=== PATIENT | male | born 1940 | race Native Hawaiian/Other Pacific Islander ===

== ENCOUNTER 2017-06-18 11:48 | Emergency (ER) | payer MEDICARE ==
[2017-06-18 11:49] VITALS: BMI 30.1
[2017-06-18 12:24] VITALS: RESP 18; O2SAT 95
--- NOTE | 2017-06-18 13:58 | C.PDOC ---
History Of Present Illness 77 y/o male, with history of dental issue,bridges, and dental prosthetics, presents to the ER complaining of pain in the right lower molar. Patient states that he has been having this pain but the pain became worse this morning. He states that he felt chest discomfort ( due to dental problem) which has resolved now. Time Seen by Provider: 06/18/17 13:45 Chief Complaint (Nursing): Dental Pain History Per: Patient History/Exam Limitations: no limitations Onset/Duration Of Symptoms: Hrs Current Symptoms Are (Timing): Still Present Severity: Moderate Past Medical History Reviewed: Historical Data, Nursing Documentation, Vital Signs Vital Signs: Last Vital Signs Temp 97.8 F 06/18/17 13:19 Pulse 84 06/18/17 13:19 Resp 18 06/18/17 13:19 BP 195/98 H 06/18/17 13:19 Pulse Ox 95 06/18/17 15:01 - Medical History PMH: COPD, HTN, Hypercholesterolemia Denies: Chronic Kidney Disease Surgical History: CABG (quadruple), Cholecystectomy Denies: Pacemaker Family History: States: No Known Family Hx - Social History Hx Tobacco Use: Yes Hx Alcohol Use: No Hx Substance Use: No - Immunization History Hx Tetanus Toxoid Vaccination: No Hx Influenza Vaccination: Yes Hx Pneumococcal Vaccination: No Review Of Systems Except As Marked, All Systems Reviewed And Found Negative. Constitutional: Negative for: Fever, Chills ENT: Positive for: Mouth Pain (right lower molar pain) Respiratory: Negative for: Cough, Shortness of Breath Physical Exam - Physical Exam Appears: Non-toxic, Other (obese, no apparent distress) Skin: Normal Color, Warm Head: Atraumatic, Normacephalic Eye(s): bilateral: Normal Inspection, PERRL Nose: Normal Oral Mucosa: Moist Teeth: Other (dental implant in place, no acute pain) Throat: Normal, No Erythema, No Exudate Neck: Supple Chest: Symmetrical Cardiovascular: Rhythm Regular Respiratory: Normal Breath Sounds, No Accessory Muscle Use, No Rales, No Rhonchi , No Wheezing Extremity: Normal ROM Neurological/Psych: Oriented x3, Normal Speech, Normal Cognition, Normal Motor, Normal Sensation ED Course And Treatment ECG: Interpreted By Me ECG Rhythm: Sinus Rhythm, R BBB ECG Interpretation: Normal Rate From EC O2 Sat by Pulse Oximetry: 95 (RA) Pulse Ox Interpretation: Normal Medical Decision Making Medical Decision Making: though pt initially claimed to have mild chest discomfort when dental pain was at its worst, pt denies cp since arriving @ ED and declines (w informed consent ) to have cardiac w/u peformed today. Asks only for abx and pain meds and will coordinte with his Cardio and Dentist to suspend ASA/plavix prior to dental procedure for R lower molar extraction. Disposition Doctor Will See Patient In The: Office Counseled Patient/Family Regarding: Studies Performed, Diagnosis - Disposition Referrals: Dileep Troy DO [[facility]] - Disposition: HOME/ ROUTINE Disposition Time: 13:58 Condition: GOOD Additional Instructions: motrin 400-600 mg every 6 hours as needed for dental pain Tramadol 50 mg (narcotic) 1 tab every 6 hours as needed for more severe dental pain [place] VK 250 mg 4x/day for proposed dental infection. Follow-up with your dentist for definitive dental repair and coordinate with your Brush Polisher to suspend the Plavix and ASA around your dental procedure. Prescriptions: Penicillin VK [Penicillin VK Tab] 250 mg PO Q6H 7 Days #28 tab traMADol [Ultram] 50 mg PO Q6H PRN #20 tab PRN Reason: pain Instructions: Dental Caries (ED) Forms: [facility] (Lebanese) - Clinical Impression Clinical Impression: Dentalgia - Scribe Statement The provider has reviewed the documentation as recorded by the Bethany Brown Provider Attestation: All medical record entries made by the Dougiblucia were at my direction and personally dictated by me. I have reviewed the chart and agree that the record accurately reflects my personal performance of the history, physical exam, medical decision making, and the department course for this patient. I have also personally directed, reviewed, and agree with the discharge instructions and disposition.
[2017-06-18 13:59] VITALS: BP 195/98; PULSE 86; TEMP 97.8
--- NOTE | 2017-06-19 23:09 | CARD ---
APPROVED REPORT EKG Measurement Heart [id number] <Conclusion> Sinus rhythm with occasional premature ventricular complexes and premature atrial complexes Possible Left atrial enlargement Right bundle branch block Left anterior fascicular block Bifascicular block Inferior infarct, age undetermined Abnormal ECG
== END 2017-06-18 14:20 | disposition home or self-care (01) ==
LOC: C.ER 11:48
DX: K08.89 Other specified disorders of teeth and supporting structures (principal); I10 Essential (primary) hypertension; F17.210 Nicotine dependence, cigarettes, uncomplicated

== ENCOUNTER 2017-11-29 12:41 | Emergency (ER) | payer MEDICARE ==
[2017-11-29 12:41] VITALS: BMI 30.1
[2017-11-29 13:03] VITALS: O2SAT 97
[2017-11-29] MEDS ORDERED: Sodium Chloride 0.9% 500 ML IV ONE (13:15)
[2017-11-29] MEDS ORDERED: Sodium Chloride 0.9% 1,000 ML ONE (13:23)
--- NOTE | 2017-11-29 13:49 | RAD ---
PROCEDURE: CHEST RADIOGRAPH, 1 VIEW HISTORY: SOB COMPARISON: Chest radiograph dated 02/04/2016. FINDINGS: LUNGS: Clear. PLEURA: No pneumothorax or pleural fluid seen. CARDIOVASCULAR: Prior sternotomy with sternal wires and surgical clips redemonstrated. Interval fracture of the sternal wires. Atherosclerotic aortic calcifications. Cardiomediastinal silhouette stably enlarged OSSEOUS STRUCTURES: Unchanged. VISUALIZED UPPER ABDOMEN: Normal. OTHER FINDINGS: None. IMPRESSION: Interval fracture of sternotomy wires. No focal consolidation or pleural effusion.
[2017-11-29 14:46] LABS: BASO # 0.1 K/uL (0.0-0.2); BASO % 0.5 % (0.0-2.0); EOS # 1.5 K/uL (0.0-0.7); EOS % 11.8 % (0.0-4.0); HEMOGLOBIN 16.8 g/dL (12.0-18.0); LYMPH # 1.6 K/uL (1.0-4.3); LYMPH % 12.9 % (20.0-40.0); MEAN CELL VOLUME 94.1 fL (80.0-94.0); MEAN CORPUSCULAR HEMOGLOBIN 32.2 pg (27.0-31.0); MEAN CORPUSCULAR HGB CONC 34.2 g/dL (33.0-37.0); MEAN PLATELET VOLUME 8.1 fL (7.2-11.7); MONO # 0.9 K/uL (0.0-0.8); MONO % 7.3 % (0.0-10.0); NEUT # 8.3 K/uL (1.8-7.0); NEUT % 67.5 % (50.0-75.0); NRBC % 0.1 % (0.0-2.0); RBC 5.22 Mil/uL (4.40-5.90); RED CELL DISTRIBUTION WIDTH 13.3 % (11.5-14.5); WHITE BLOOD COUNT 12.3 K/uL (4.8-10.8)
[2017-11-29 15:04] LABS: ALB/GLOB RATIO 1.3 (1.0-2.1); CALCIUM 8.9 mg/dl (8.6-10.4)
[2017-11-29 15:15] LABS: TROPONIN I 0.017 ng/mL (0.00-0.120)
[2017-11-29 16:07] VITALS: BP 160/67; PULSE 89; RESP 18; TEMP 97.6
--- NOTE | 2017-11-29 16:07 | C.PDOC ---
History Of Present Illness 77 y/o male presents to the ER complaining of a a generalized rash which has been present since he woke up in the morning today. Patient states he is very pruritic. Patient reports that he took 1 Benadryl tablet at 7 am. He states that he ate fish and tomatoe last night. Denies using new food and new clothing. Time Seen by Provider: 11/29/17 13:11 Chief Complaint (Nursing): Allergic Reaction History Per: Patient History/Exam Limitations: no limitations Onset/Duration Of Symptoms: Hrs Current Symptoms Are (Timing): Still Present Severity: Moderate Past Medical History Reviewed: Historical Data, Nursing Documentation, Vital Signs Vital Signs: Last Vital Signs Temp 97.6 F 11/29/17 16:07 Pulse 89 11/29/17 16:07 Resp 18 11/29/17 16:07 BP 160/67 H 11/29/17 16:07 Pulse Ox 97 11/29/17 16:42 - Medical History PMH: COPD, HTN, Hypercholesterolemia Denies: Chronic Kidney Disease Surgical History: CABG (quadruple), Cholecystectomy Denies: Pacemaker Family History: States: No Known Family Hx - Social History Hx Tobacco Use: Yes Hx Alcohol Use: No Hx Substance Use: No - Immunization History Hx Tetanus Toxoid Vaccination: No Hx Influenza Vaccination: Yes Hx Pneumococcal Vaccination: No Review Of Systems Except As Marked, All Systems Reviewed And Found Negative. Constitutional: Negative for: Fever, Chills Skin: Positive for: Rash Physical Exam - Physical Exam Appears: Non-toxic, No Acute Distress Skin: Normal Color, Warm, Rash (urticaria to face, chest, back, arms, legs) Head: Atraumatic, Normacephalic Eye(s): bilateral: Normal Inspection Nose: Normal Oral Mucosa: Moist Neck: Supple Chest: Symmetrical Cardiovascular: Rhythm Regular Respiratory: Normal Breath Sounds, No Rales, No Rhonchi, No Wheezing, Other ( normal voice) Gastrointestinal/Abdominal: Normal Exam, Soft, No Tenderness, No Guarding, No Rebound Extremity: Normal ROM Neurological/Psych: Oriented x3, Normal Speech ED Course And Treatment - Laboratory Results Result Diagrams: 11/29/17 13:14 11/29/17 13:14 Lab Interpretation: Abnormal (+ predominantly lymphocytic c/w allergic rxn) ECG: Interpreted By Me ECG Rhythm: Sinus Rhythm ECG Interpretation: Normal Interpretation Of ECG: NSR with RBBB Rate From EC O2 Sat by Pulse Oximetry: 97 (RA) Pulse Ox Interpretation: Normal - Radiology CXR: Interpreted by Me CXR Interpretation: Yes: No Acute Disease Progress Note: Labs, UA, EKG, and CXR ordered and reviewed. Of note, arterial blood was used. Patient treated with Pepcid PO, Prednisone PO, Benadryl PO, and IV Fluids. Reevaluation Time: 16:06 (rash and pruritis much improved) Reassessment Condition: Improved Medical Decision Making Medical Decision Making: acute allergic urticaria of ? etiology no new foods/soaps/detergents/in past 24 hrs may f/u as opt with DR. Troy. Disposition Doctor Will See Patient In The: Office Counseled Patient/Family Regarding: Studies Performed, Diagnosis - Disposition Referrals: Dileep Troy DO [[facility]] - Disposition: HOME/ ROUTINE Disposition Time: 16:06 Condition: GOOD Additional Instructions: continue steroids for 2 more days- Prednisone 40 mg by mouth, take in morning. Pepcid 20 mg twice a day for 2 more days Benadryl 25-50 mg twice a day for 2 more days Follow-up with Dr. Troy TOMORROW for re-evaluation of your rash. Prescriptions: Prednisone [Deltasone] 40 mg PO DAILY 2 Days tablet Instructions: Skin Rash, Hives (DC) Forms: [facility] (Yoruba) - Clinical Impression Clinical Impression: Rash and nonspecific skin eruption - Scribe Statement The provider has reviewed the documentation as recorded by the Bethany Brown Provider Attestation: All medical record entries made by the Dougiblucia were at my direction and personally dictated by me. I have reviewed the chart and agree that the record accurately reflects my personal performance of the history, physical exam, medical decision making, and the department course for this patient. I have also personally directed, reviewed, and agree with the discharge instructions and disposition.
--- NOTE | 2017-12-02 21:19 | CARD ---
APPROVED REPORT EKG Measurement Heart [id number] <Conclusion> Normal sinus rhythm Left axis deviation Right bundle branch block Possible Inferior infarct, age undetermined Abnormal ECG
== END 2017-11-29 16:44 | disposition home or self-care (01) ==
LOC: C.ER 12:41
DX: R21 Rash and other nonspecific skin eruption (principal); I10 Essential (primary) hypertension; E78.00 Pure hypercholesterolemia, unspecified; F17.210 Nicotine dependence, cigarettes, uncomplicated